=== PATIENT | female | born 1985 | race Hispanic/Latino ===

== ENCOUNTER 2021-07-30 03:07 | Inpatient (IN) | payer MEDICAID, OTHER ==
[2021-07-30] VITALS (7 sets, daily range): BP systolic 116–125; BP diastolic 70–80
[2021-07-30] MEDS: OXYTOCIN-LR 20 UNITS/1000 ML 1,000 ML IV SCH ×2 (03:11→04:15)
[2021-07-30] MEDS ORDERED: ONDANSETRON 4MG INJ ONE (03:18)
[2021-07-30] MEDS ORDERED: MISOPROSTOL 200 MCG TABLET ONE (03:43)
[2021-07-30] MEDS ORDERED: MISOPROSTOL 200 MCG TABLET PR ONE (03:45)
[2021-07-30] MEDS ORDERED: MISOPROSTOL 200 MCG TABLET VG ONE (03:45)
[2021-07-30] MEDS ORDERED: OXYTOCIN-LR 20 UNITS/1000 ML 1,000 ML IV ONE (03:58)
[2021-07-30] MEDS ORDERED: OXYTOCIN 10 USP UNITS/ML ONE (03:58)
[2021-07-30] MEDS ORDERED: LIDOCAINE HCL 1% 20 ML VIAL ONE (04:00)
[2021-07-30] MEDS ORDERED: OXYTOCIN 10 USP UNITS/ML IV ONE (04:00)
[2021-07-30] MEDS ORDERED: OXYTOCIN-LR 20 UNITS/1000 ML 1,000 ML IV SCH (04:30)
[2021-07-30] MEDS ORDERED: MEASLES/MUMPS/RUBELLA VACCINE, LIVE 0.5 ML/VIAL SQ PRN (04:30)
[2021-07-30] MEDS ORDERED: ACETAMINOPHEN 325 MG TAB PO PRN (04:30)
[2021-07-30] MEDS ORDERED: LANOLIN 30GM OINTMENT TP PRN (04:30)
[2021-07-30] MEDS ORDERED: BENZOCAINE/LANOLIN/ALOE VERA 60 ML AEROSOL TP PRN (04:30)
[2021-07-30] MEDS ORDERED: WITCH HAZEL 1 PAD TP PRN (04:30)
[2021-07-30] MEDS ORDERED: ACETAMINOPHEN WITH CODEINE 1 TAB TAB PO PRN (04:30)
[2021-07-30] MEDS ORDERED: DIPH,PERTUSS(ACELL),TET VAC/PF 0.5 ML VIAL IM PRN (04:30)
[2021-07-30 04:31] LABS: ALBUMIN 2.5 g/dL (3.5-5.0); BILIRUBIN,TOTAL 0.2 mg/dL (0.2-1.0); CREATININE 0.6 mg/dL (0.5-1.5); POTASSIUM 4.3 mmol/L (3.5-5.1); TOTAL PROTEIN, SERUM 6.4 g/dL (6.0-8.3)
[2021-07-30 04:36] LABS: BASOPHILS % (AUTO) 0.2 % (0.0-5.0); EOSINOPHILS % (AUTO) 1.3 % (0.0-8.0); HEMATOCRIT 33.3 % (36-48); LYMPHOCYTES % (AUTO) 19.4 % (21.0-51.0); MEAN CORPUSCULAR HEMOGLOBIN 30.8 pg (27.0-33.0); MEAN CORPUSCULAR HGB CONC 34.2 g/dL (32.0-36.0); MONOCYTES % (AUTO) 7.1 % (3.0-13.0); NEUTROPHILS % (AUTO) 71.6 % (40.0-77.0); PLATELET COUNT (AUTO) 183 K/uL (130-400); RED CELL DISTRIBUTION WIDTH 13.1 % (11.0-15.5); WHITE BLOOD COUNT (AUTO) 11.2 K/uL (4.8-10.8)
[2021-07-30 04:37] LABS: INR 0.91 (0.85-1.15)
[2021-07-30 04:39] LABS: PARTIAL THROMBOPLASTIN TIME 25.5 SEC (26.3-35.5)
[2021-07-30 04:43] LABS: URIC ACID 4.4 mg/dL (2.6-7.2)
[2021-07-30] MEDS ORDERED: LIDOCAINE HCL 1% 20 ML VIAL INJ ONE (05:00)
[2021-07-30] MEDS: IBUPROFEN 600 MG TABLET PO PRN ×3 (06:10→19:40)
[2021-07-30] MEDS ORDERED: PREN1TAB80 PO (06:46)
[2021-07-30 07:36] LABS: RAPID PLASMA REAGIN NONREACTIVE (NONREACTIVE)
[2021-07-30 09:19] LABS: AMPHET/METH SCREEN,URINE NEGATIVE (NEGATIVE); BARBITURATE SCREEN, URINE NEGATIVE (NEGATIVE); BENZODIAZEPINES SCREEN,URINE NEGATIVE (NEGATIVE); CANNABINOID SCREEN,URINE NEGATIVE (NEGATIVE); COCAINE SCREEN,URINE NEGATIVE (NEGATIVE); OPIATE SCREEN,URINE NEGATIVE (NEGATIVE); PHENCYCLIDINE SCREEN,URINE NEGATIVE (NEGATIVE)
[2021-07-30] MEDS: DOCUSATE SODIUM 100 MG CAP PO SCH (21:03)
[2021-07-31] MEDS: IBUPROFEN 600 MG TABLET PO PRN ×2 (01:39→08:42)
[2021-07-31 03:14] VITALS: BP 113/73
[2021-07-31 06:38] LABS: HEMATOCRIT 27.9 % (36-48); MEAN CORPUSCULAR HEMOGLOBIN 30.8 pg (27.0-33.0); MEAN CORPUSCULAR VOLUME 93.3 fL (79-99); RED BLOOD CELL COUNT(AUTO) 2.99 MIL/uL (4.00-5.50); RED CELL DISTRIBUTION WIDTH 13.4 % (11.0-15.5); WHITE BLOOD COUNT (AUTO) 9.2 K/uL (4.8-10.8)
[2021-07-31 07:35] VITALS: BP 120/82
[2021-07-31] MEDS: DOCUSATE SODIUM 100 MG CAP PO SCH (08:41)
[2021-07-31 11:33] VITALS: BP 129/89
[2021-07-31] MEDS ORDERED: IBUP-2784 PO (11:43)
== END 2021-07-31 12:10 | disposition home or self-care (01) | DRG 769 ==
LOC: EDH 03:07 → OBSVTOIN 03:43 → LDH 03:43 → WSH 14:40
PROVIDERS: ADMIT Obstetrics & Gynecology; ATTEND Obstetrics & Gynecology
PROC: 0KQM0ZZ Repair Perineum Muscle, Open Approach (ICD-10-PCS; principal; 2021-07-30)
PROC: 3E0234Z Introduction of Serum, Toxoid and Vaccine into Muscle, Percutaneous Approach (ICD-10-PCS; 2021-07-30)
DX: Z39.0 Encounter for care and examination of mother immediately after delivery (principal); O70.1 Second degree perineal laceration during delivery; Z23 Encounter for immunization
CPT/HCPCS: 36415; 80053; 80305; 84550; 85025; 85027; 85384; 85610; 85730; 86592; 86701; 86850; 86900; 86901; 87340; 87390; 90715; A4351; G0378; J2405; J2590

== ENCOUNTER 2023-07-07 11:19 | Observation (INO) | payer OTHER, MEDICAID ==
[~2023-07-07] VITALS: Ht 157.5 cm; Wt 69.9 kg
[~2023-07-07 11:19] MED LIST: IBUP-2784 PO; PREN1TAB80 PO
[2023-07-07 11:30] VITALS: BP 121/76; PULSE 88; RESP 16; O2SAT 99
[2023-07-07 12:04] LABS: APPEARANCE,URINE CLEAR (CLEAR); BILIRUBIN,URINE NEGATIVE (NEGATIVE); COLOR,URINE YELLOW (YELLOW); GLUCOSE, URINE (UA) 30 mg/dL (NEGATIVE); KETONES,URINE NEGATIVE (NEGATIVE); LEUKOCYTE ESTERASE ,URINE 25 Leu/uL (NEGATIVE); NITRATE,URINE NEGATIVE (NEGATIVE); OCCULT BLOOD,URINE NEGATIVE (NEGATIVE); PROTEIN,URINE 20 mg/dL (NEGATIVE); UROBILINOGEN,URINE 0.2 mg/dL (0.2-1.0)
[2023-07-07 12:05] LABS: HCG,QUALITATIVE URINE POSITIVE (NEGATIVE)
[2023-07-07 12:07] LABS: ADD UA MICROSCOPIC YES
[2023-07-07 12:13] LABS: MUCUS,URINE RARE LPF (None Seen); RBC,URINE 0-1 /HPF (0-1); SQUAMOUS EPITHELIAL CELL,UR FEW /HPF (0-2)
== END 2023-07-07 14:00 | disposition home or self-care (01) ==
LOC: EDH 11:19 → LDH 11:20
PROVIDERS: ADMIT Obstetrics & Gynecology; ATTEND Obstetrics & Gynecology
DX: O26.852 Spotting complicating pregnancy, second trimester (principal); O26.892 Other specified pregnancy related conditions, second trimester; N89.8 Other specified noninflammatory disorders of vagina; Z3A.23 23 weeks gestation of pregnancy
CPT/HCPCS: 59025; 81001; 81025; 76805; G0378 ×2; G0379

== ENCOUNTER 2023-11-12 20:58 | Emergency (ER) | payer MEDICAID, OTHER ==
[~2023-11-12 20:58] MED LIST changes: +ACET-2079 PO; +LEVO100C4 PO
== END 2023-11-12 21:36 | disposition left against medical advice (07) ==
LOC: EDH 20:58
DX: I10 Essential (primary) hypertension (principal); Z53.21 Procedure and treatment not carried out due to patient leaving prior to being seen by health care provider